=== PATIENT | male | born 1975 | race Caucasian/White ===

== ENCOUNTER → 2021-05-08 13:54 | Outpatient (CLI) | payer BC, SELFPAY ==
--- NOTE | ~2021-05-08 | XR_ITS ---
XR abdomen/kub 1V 05/08/2021 14:09 INDICATION: Left lower quadrant pain TECHNIQUE: KUB COMPARISON: None FINDINGS: Bowel gas pattern is normal. There is no evidence of free air, mass, organomegaly, ascites or obstruction. No abnormal calculi are seen. The bones appear intact. There is a pelvic phlebolit h. IMPRESSION: 1: No acute abdominal abnormality identified. Reviewed, dictated and finalized at location B.
== END ==
PROVIDERS: PCP Family Medicine; Visit Provider Nurse Practitioner Family
DX: R10.32 Left lower quadrant pain (principal)
CPT/HCPCS: 74018

== ENCOUNTER 2023-01-06 00:36 | Day surgery (SDC) | payer BC, SELFPAY ==
[2022-12-22 14:55] VITALS: BMI 28.6
--- NOTE | 2023-01-04 09:11 | SUR.PREOP ---
Patient called regarding upcoming procedure. Reviewed preop instructions, appointment times, and procedure prep.
--- NOTE | 2023-01-05 13:41 | PM.HPGS ---
History of Present Illness History of Present Illness Consent: Risks, benefits, and alternatives have been discussed and questions answered. Patient agrees to proceed with procedure. Chief complaint: neoplasm screening Narrative: Mikhail Cintron is a 47 year old male Who was referred for colon cancer screening. Review of Systems Review of Systems: All systems reviewed & are unremarkable except as noted in HPI and below PMFSH Past Medical History Medical History Pure hyperglyceridemia Surgical History Surgical History History of skin graft R foot Social History Social History Smoking status: Never smoker Second hand tobacco smoke exposure: No Alcohol intake: current Alcohol use details: rare Substance use: never Substance use type: does not use Living arrangements: with family Occupation/Education: occupation Gender identity (if verbalized by the patient): Male Sexual Orientation (if Verbalized by the Patient): Straight or Heterosexual Spiritual care concerns: No Meds Home Medications and Allergies Home Medications Medication Instructions Recorded Confirmed Type No Home Medications 10/14/22 01/06/23 History Allergies Allergy/AdvReac Type Severity Reaction Status Date / Time No Known Allergies Allergy Verified 01/06/23 07:53 Exam Resp: Auscultation: clear to auscultation bilaterally Cardio: Rate: regular rate Rhythm: regular rhythm GI: GI Palp: Yes Soft to palpation and No Tenderness to palpation present (GI) Assessment and Plan Assessment and plan (1) Colon cancer screening: Code(s): Z12.11 - Encounter for screening for malignant neoplasm of colon Status: Acute Assessment and Plan: Colonoscopy with possible biopsy or polypectomy or cautery or injection of substances.
[2023-01-06 07:55] VITALS: BP 112/79; PULSE 82; RESP 18; TEMP 36.1; O2SAT 100; BMI 27.7
[2023-01-06] MEDS: LACTATED RINGERS 1,000 ML 150 ML IV CONT (07:57)
--- NOTE | 2023-01-06 08:59 | P.PNAN_ITS ---
Anes - Initial Pre Proc Eval Procedure: Operation Date: 01/06/23 09:00 Proposed Procedures p Screening Colonoscopy - Artemio Mueller MD Date/Time: 01/06/23 08:59 Surgeon: Artemio Mueller MD Pre Op Diagnosis: neoplasm screening Patient Data Age: 47 Gender: M Height: 1.65 m Weight: 75.6 kg Last Vital Signs Temp 97.0 F L 01/06/23 07:55 Pulse 82 01/06/23 07:55 Resp 18 01/06/23 07:55 BP 112/79 01/06/23 07:55 Pulse Ox 100 01/06/23 07:55 O2 Del Method Room Air 01/06/23 07:55 Allergies Allergy/AdvReac Type Severity Reaction Status Date / Time No Known Allergies Allergy Verified 01/06/23 07:53 Home Medications Medication Instructions Recorded Confirmed Type No Home Medications 10/14/22 01/06/23 History Patient hx anesthesia problems: none Family hx anesthesia problems: none Results Review: All pre-operative results and documents have been reviewed as part of the pre- operative evaluation. [facility] Past Medical History Medical History Pure hyperglyceridemia Surgical History Surgical History History of skin graft R foot Social History Social History Smoking status: Never smoker Second hand tobacco smoke exposure: No Alcohol intake: current Alcohol use details: rare Substance use: never Substance use type: does not use Living arrangements: with family Occupation/Education: occupation Gender identity (if verbalized by the patient): Male Sexual Orientation (if Verbalized by the Patient): Straight or Heterosexual Spiritual care concerns: No Anes - Eval Final PreProcedure Day of Procedure 01/06/23 08:59 Patient weight: normal Heart: regular rate and rhythm Lungs: clear to auscultation Airway: Mallampati scale class II Neurological: alert and oriented Last oral intake: >/= 8 hours ASA classification: I Emergent: no Anesthetic plan: proceed Anesthesia type and monitoring: general GIVS and standard monitoring Results Review: All pre-operative results and documents have been reviewed as part of the pre- operative evaluation. Informed Consent: The patient's anesthetic plan and its attendant risks and benefits were discussed with the patient/family/POA. Questions were solicited and answers provided to the satisfaction of the patient/family/POA.
[2023-01-06 09:16] VITALS: BP 86/51; PULSE 70; RESP 19; O2SAT 99
[2023-01-06 09:26] VITALS: BP 104/66; PULSE 63; RESP 20; O2SAT 100
[2023-01-06 09:36] VITALS: BP 117/77; PULSE 66; RESP 25; O2SAT 100
== END 2023-01-06 10:24 | disposition home or self-care (01) ==
PROVIDERS: PCP Family Medicine; Visit Provider Internal Medicine Gastroenterology
PROC: 0DJD8ZZ Inspection of Lower Intestinal Tract, Via Natural or Artificial Opening Endoscopic (ICD-10-PCS; CPT 45378; principal; 2023-01-06 09:00)
DX: Z12.11 Encounter for screening for malignant neoplasm of colon (principal)
CPT/HCPCS: 45378; J2704; J7120